=== PATIENT | female | born 1965 | race Caucasian/White ===

== ENCOUNTER → 2017-02-15 | Outpatient (CLI) | payer BC | LOC: RAD 09:19 | DX: Z12.31 Encounter for screening mammogram for malignant neoplasm of breast (principal); N63.20 Unspecified lump in the left breast, unspecified quadrant | CPT/HCPCS: G0202 ==

== ENCOUNTER → 2017-03-05 | Outpatient (CLI) | payer BC | LOC: RAD 15:53 | DX: N95.0 Postmenopausal bleeding (principal) ==

== ENCOUNTER → 2017-03-11 | Outpatient (CLI) | payer BC | LOC: RAD 07:14 | DX: N63.23 Unspecified lump in the left breast, lower outer quadrant (principal) ==

== ENCOUNTER → 2017-10-11 | Outpatient (CLI) | payer BC | LOC: RAD 08:33 | DX: M76.892 Other specified enthesopathies of left lower limb, excluding foot (principal) ==

== ENCOUNTER → 2017-10-14 | Outpatient (CLI) | payer BC | LOC: RAD 17:00 | DX: M17.12 Unilateral primary osteoarthritis, left knee (principal); M75.111 Incomplete rotator cuff tear or rupture of right shoulder, not specified as traumatic; M19.011 Primary osteoarthritis, right shoulder ==

== ENCOUNTER → 2018-01-01 | Outpatient (CLI) | payer BC ==
[2018-01-01 09:31] LABS: EOS # 0.1 (0.04-0.40); EOS % 1.4 % (1.0-5.0); HEMATOCRIT 38.6 % (37.0-47.0); HEMOGLOBIN 12.5 g/dL (12.5-16.0); LYMPH# 2.6 (1.50-4.00); MEAN CELL VOLUME 94 fl (78-100); MEAN CORPUSCULAR HEMOGLOBIN 30 pg (27-31); MEAN CORPUSCULAR HGB CONC 32 g/dL (33-37); MEAN PLATELET VOLUME 11.6 fl (7.4-10.4); MONO # 0.8 (0.20-0.80); PLATELET COUNT 242 K/mm3 (130-400); RED BLOOD COUNT 4.11 M/mm3 (4.10-5.30); WHITE BLOOD COUNT 8.6 K/mm3 (4.8-10.8)
[2018-01-01 09:59] LABS: CALCIUM 9.5 mg/dL (8.4-10.2); POTASSIUM 3.8 mmol/L (3.6-5.0); TOTAL BILIRUBIN 0.6 mg/dL (0.2-1.3); TOTAL PROTEIN 7.4 g/dL (6.3-8.2)
== END ==
LOC: LAB 09:00
PROVIDERS: Family Medicine
DX: Z00.00 Encounter for general adult medical examination without abnormal findings (principal); R53.83 Other fatigue

== ENCOUNTER → 2018-01-03 | Outpatient (CLI) | payer BC | LOC: CARDREHAB 07:43 → CARDLAB 12:00 | DX: R94.39 Abnormal result of other cardiovascular function study (principal); R07.9 Chest pain, unspecified; Z82.49 Family history of ischemic heart disease and other diseases of the circulatory system | CPT/HCPCS: A9500 ==

== ENCOUNTER → 2018-05-06 | Outpatient (CLI) | payer BC | LOC: MAMMO 09:57 | DX: Z12.31 Encounter for screening mammogram for malignant neoplasm of breast (principal) ==

== ENCOUNTER → 2018-07-07 | Outpatient (CLI) | payer BC | LOC: RAD 14:41 | DX: M47.816 Spondylosis without myelopathy or radiculopathy, lumbar region (principal); M16.12 Unilateral primary osteoarthritis, left hip ==

== ENCOUNTER → 2018-07-16 | Outpatient (CLI) | payer BC | LOC: RAD 06:46 | DX: M51.17 Intervertebral disc disorders with radiculopathy, lumbosacral region (principal); M40.56 Lordosis, unspecified, lumbar region ==

== ENCOUNTER 2018-09-18 08:30 | Outpatient (RCR) | payer BC, OTHER | END 2018-09-18 09:00 | disposition still patient (30) | LOC: PT 08:30 | DX: M51.36 Other intervertebral disc degeneration, lumbar region (principal) ==

== ENCOUNTER → 2019-02-03 | Outpatient (CLI) | payer BC ==
[2019-02-03 09:04] LABS: EOS # 0.1 (0.04-0.40); HEMATOCRIT 39.8 % (37.0-47.0); HEMOGLOBIN 12.5 g/dL (12.5-16.0); LYMPH# 2.9 (1.50-4.00); MEAN CELL VOLUME 95 fl (78-100); MEAN CORPUSCULAR HEMOGLOBIN 30 pg (27-31); MEAN CORPUSCULAR HGB CONC 31 g/dL (33-37); MEAN PLATELET VOLUME 11.4 fl (7.4-10.4); MONO # 0.6 (0.20-0.80); NEU # 3.2 (1.40-6.50); PLATELET COUNT 278 K/mm3 (130-400); RED BLOOD COUNT 4.21 M/mm3 (4.10-5.30); RED CELL DISTRIBUTION WIDTH 14.9 % (11.5-14.5); WHITE BLOOD COUNT 6.8 K/mm3 (4.8-10.8)
[2019-02-03 09:15] LABS: POTASSIUM 4.2 mmol/L (3.5-5.1)
[2019-02-03 09:16] LABS: ALBUMIN 3.8 g/dL (3.5-5.0)
[2019-02-03 09:17] LABS: CALCIUM 9.7 mg/dL (8.3-10.5)
[2019-02-03 09:20] LABS: TOTAL BILIRUBIN 0.5 mg/dL (0.2-1.2)
== END ==
LOC: LAB 08:48
PROVIDERS: Family Medicine
DX: Z00.00 Encounter for general adult medical examination without abnormal findings (principal); E78.5 Hyperlipidemia, unspecified; E55.9 Vitamin D deficiency, unspecified

== ENCOUNTER → 2019-02-04 | Outpatient (CLI) | payer BC | LOC: RAD 06:58 | DX: S83.241A Other tear of medial meniscus, current injury, right knee, initial encounter (principal); M17.11 Unilateral primary osteoarthritis, right knee; M25.461 Effusion, right knee ==

== ENCOUNTER → 2019-07-22 | Outpatient (CLI) | payer BC | LOC: RAD 11:16 | DX: M19.011 Primary osteoarthritis, right shoulder (principal); M50.323 Other cervical disc degeneration at C6-C7 level ==

== ENCOUNTER → 2019-08-11 | Outpatient (CLI) | payer BC | LOC: RAD 07:00 | DX: M47.812 Spondylosis without myelopathy or radiculopathy, cervical region (principal); M25.511 Pain in right shoulder; M25.512 Pain in left shoulder ==

== ENCOUNTER → 2020-05-30 | Outpatient (CLI) | payer BC ==
[2020-05-30 17:24] LABS: EOS # 0.2 (0.04-0.40); EOS % 1.6 % (1.0-5.0); HEMATOCRIT 41.5 % (37.0-47.0); LYMPH# 4.1 (1.50-4.00); MEAN CELL VOLUME 97 fl (78-100); MEAN CORPUSCULAR HEMOGLOBIN 30 pg (27-31); MEAN CORPUSCULAR HGB CONC 31 g/dL (33-37); MEAN PLATELET VOLUME 10.1 fl (7.4-10.4); PLATELET COUNT 389 K/mm3 (130-400); RED BLOOD COUNT 4.27 M/mm3 (4.10-5.30); WHITE BLOOD COUNT 10.3 K/mm3 (4.8-10.8)
[2020-05-30 17:50] LABS: POTASSIUM 4.1 mmol/L (3.5-5.1)
[2020-05-30 17:52] LABS: CALCIUM 9.4 mg/dL (8.3-10.5)
[2020-05-30 17:53] LABS: TOTAL PROTEIN 7.5 g/dL (6.4-8.3)
[2020-05-30 17:55] LABS: TOTAL BILIRUBIN 0.4 mg/dL (0.2-1.2)
[2020-05-30 18:54] LABS: PROTHROMBIN TIME 9.5 SECONDS (9.0-12.0)
== END ==
LOC: LAB 17:08
PROVIDERS: Family Medicine
DX: I10 Essential (primary) hypertension (principal); E55.9 Vitamin D deficiency, unspecified; R73.9 Hyperglycemia, unspecified; R58 Hemorrhage, not elsewhere classified

== ENCOUNTER → 2020-08-18 | Outpatient (CLI) | payer BC | LOC: RAD 15:51 | DX: S83.242A Other tear of medial meniscus, current injury, left knee, initial encounter (principal); S82.142A Displaced bicondylar fracture of left tibia, initial encounter for closed fracture; S86.812A Strain of other muscle(s) and tendon(s) at lower leg level, left leg, initial encounter ==

== ENCOUNTER → 2020-10-06 | Outpatient (CLI) | payer BC ==
[2020-10-06 09:10] LABS: BASO # 0.04 (0.02-0.10); EOS # 0.13 (0.04-0.40); EOS % 1.5 % (1.0-5.0); HEMATOCRIT 37.8 % (37.0-47.0); HEMOGLOBIN 11.8 g/dL (12.5-16.0); LYMPH# 3.32 (1.50-4.00); MEAN CELL VOLUME 101 fl (78-100); MEAN CORPUSCULAR HEMOGLOBIN 32 pg (27-31); MEAN CORPUSCULAR HGB CONC 31 g/dL (33-37); MEAN PLATELET VOLUME 10.8 fl (7.4-10.4); MONO # 0.69 (0.20-0.80); NEU # 4.43 (1.40-6.50); PLATELET COUNT 278 K/mm3 (130-400); RED BLOOD COUNT 3.74 M/mm3 (4.10-5.30); RED CELL DISTRIBUTION WIDTH 13.7 % (11.5-14.5); WHITE BLOOD COUNT 8.6 K/mm3 (4.8-10.8)
[2020-10-06 09:27] LABS: ALBUMIN 3.8 g/dL (3.5-5.0); POTASSIUM 4.3 mmol/L (3.5-5.1)
[2020-10-06 09:28] LABS: CALCIUM 9.5 mg/dL (8.3-10.5)
[2020-10-06 09:29] LABS: TOTAL PROTEIN 6.9 g/dL (6.4-8.3)
[2020-10-06 09:31] LABS: TOTAL BILIRUBIN 0.7 mg/dL (0.2-1.2)
== END ==
LOC: LAB 08:47
PROVIDERS: Family Medicine
DX: Z00.00 Encounter for general adult medical examination without abnormal findings (principal); Z13.29 Encounter for screening for other suspected endocrine disorder; Z13.220 Encounter for screening for lipoid disorders; R73.9 Hyperglycemia, unspecified

== ENCOUNTER → 2020-10-19 | Outpatient (CLI) | payer BC | LOC: MAMMO 08:26 | DX: Z12.31 Encounter for screening mammogram for malignant neoplasm of breast (principal) ==

== ENCOUNTER → 2020-11-25 | Outpatient (CLI) | payer BC ==
[2020-11-25 09:53] LABS: POTASSIUM 4.1 mmol/L (3.5-5.1)
[2020-11-25 09:55] LABS: CALCIUM 9.8 mg/dL (8.3-10.5)
== END ==
LOC: LAB 08:39
PROVIDERS: Internal Medicine Nephrology
DX: N17.9 Acute kidney failure, unspecified (principal)

== ENCOUNTER → 2020-12-30 | Outpatient (CLI) | payer BC | LOC: RAD 17:50 | DX: M25.562 Pain in left knee (principal) ==

== ENCOUNTER → 2021-04-25 | Outpatient (CLI) | payer BC ==
[2021-04-25 16:26] LABS: BASO # 0.04 K/mm3 (0.02-0.10); HEMATOCRIT 40.9 % (37.0-47.0); HEMOGLOBIN 12.8 g/dL (12.5-16.0); LYMPH# 4.31 K/mm3 (1.50-4.00); MEAN CELL VOLUME 99 fl (78-100); MEAN CORPUSCULAR HEMOGLOBIN 31 pg (27-31); MEAN CORPUSCULAR HGB CONC 31 g/dL (33-37); MEAN PLATELET VOLUME 10.3 fl (7.4-10.4); MONO # 0.81 K/mm3 (0.20-0.80); NEU # 4.43 K/mm3 (1.40-6.50); PLATELET COUNT 354 K/mm3 (130-400); RED BLOOD COUNT 4.14 M/mm3 (4.10-5.30); RED CELL DISTRIBUTION WIDTH 14.4 % (11.5-14.5); WHITE BLOOD COUNT 9.7 K/mm3 (4.8-10.8)
[2021-04-25 16:44] LABS: PROTHROMBIN TIME 9.6 SECONDS (9.0-12.0)
== END ==
LOC: LAB 16:04
PROVIDERS: Family Medicine
DX: I10 Essential (primary) hypertension (principal); G44.89 Other headache syndrome; R58 Hemorrhage, not elsewhere classified; G89.29 Other chronic pain; F32.9 Major depressive disorder, single episode, unspecified; K21.9 Gastro-esophageal reflux disease without esophagitis; R73.9 Hyperglycemia, unspecified; E03.9 Hypothyroidism, unspecified; E66.9 Obesity, unspecified; M19.90 Unspecified osteoarthritis, unspecified site; Z88.9 Allergy status to unspecified drugs, medicaments and biological substances

== ENCOUNTER → 2021-07-10 | Outpatient (CLI) | payer BC ==
[2021-07-10 15:41] LABS: BASO # 0.04 K/mm3 (0.02-0.10); EOS # 0.11 K/mm3 (0.04-0.40); EOS % 1.2 % (1.0-5.0); HEMATOCRIT 39.2 % (37.0-47.0); HEMOGLOBIN 12.3 g/dL (12.5-16.0); LYMPH# 3.82 K/mm3 (1.50-4.00); MEAN CELL VOLUME 98 fl (78-100); MEAN CORPUSCULAR HEMOGLOBIN 31 pg (27-31); MEAN CORPUSCULAR HGB CONC 31 g/dL (33-37); MEAN PLATELET VOLUME 10.1 fl (7.4-10.4); MONO # 0.64 K/mm3 (0.20-0.80); PLATELET COUNT 301 K/mm3 (130-400); RED BLOOD COUNT 3.99 M/mm3 (4.10-5.30); RED CELL DISTRIBUTION WIDTH 13.9 % (11.5-14.5); WHITE BLOOD COUNT 8.8 K/mm3 (4.8-10.8)
[2021-07-10 15:47] LABS: ALBUMIN 3.8 g/dL (3.5-5.0)
[2021-07-10 15:48] LABS: POTASSIUM 4.3 mmol/L (3.5-5.1)
[2021-07-10 15:49] LABS: CALCIUM 9.7 mg/dL (8.3-10.5)
[2021-07-10 15:50] LABS: TOTAL PROTEIN 7.1 g/dL (6.4-8.3)
[2021-07-10 15:52] LABS: PROTHROMBIN TIME 9.7 SECONDS (9.0-12.0); TOTAL BILIRUBIN 0.4 mg/dL (0.2-1.2)
[2021-07-10 16:27] LABS: URINE APPEARANCE CLEAR; URINE COLOR YELLOW; URINE GLUCOSE NEGATIVE (NEGATIVE); URINE PROTEIN(semi-quant) TRACE (NEGATIVE)
[2021-07-10 16:28] LABS: URINE BILIRUBIN 2+ (NEGATIVE); URINE BLOOD NEGATIVE (NEGATIVE); URINE KETONE NEGATIVE (NEGATIVE); URINE LEUKOCYTE ESTERASE NEGATIVE (NEGATIVE); URINE NITRATE NEGATIVE (NEGATIVE); URINE UROBILINOGEN 1 mg/dL (NORMAL); URINE WBC 0-1 /hpf (0-3)
== END ==
LOC: LAB 15:22
PROVIDERS: Family Medicine
DX: Z01.89 Encounter for other specified special examinations (principal); Z01.818 Encounter for other preprocedural examination; I10 Essential (primary) hypertension; G44.89 Other headache syndrome; G89.29 Other chronic pain; M51.36 Other intervertebral disc degeneration, lumbar region; F32.9 Major depressive disorder, single episode, unspecified; K21.9 Gastro-esophageal reflux disease without esophagitis; R73.9 Hyperglycemia, unspecified

== ENCOUNTER → 2021-11-17 | Outpatient (CLI) | payer BC ==
[2021-11-17 15:39] LABS: BASO # 0.04 K/mm3 (0.02-0.10); EOS # 0.16 K/mm3 (0.04-0.40); EOS % 1.9 % (1.0-5.0); HEMATOCRIT 35.6 % (37.0-47.0); HEMOGLOBIN 11.2 g/dL (12.5-16.0); LYMPH# 3.18 K/mm3 (1.50-4.00); MEAN CELL VOLUME 97 fl (78-100); MEAN CORPUSCULAR HEMOGLOBIN 30 pg (27-31); MEAN CORPUSCULAR HGB CONC 32 g/dL (33-37); MEAN PLATELET VOLUME 10.1 fl (7.4-10.4); MONO # 0.67 K/mm3 (0.20-0.80); NEU # 4.16 K/mm3 (1.40-6.50); PLATELET COUNT 344 K/mm3 (130-400); RED BLOOD COUNT 3.68 M/mm3 (4.10-5.30); RED CELL DISTRIBUTION WIDTH 14.1 % (11.5-14.5); WHITE BLOOD COUNT 8.2 K/mm3 (4.8-10.8)
[2021-11-17 15:50] LABS: ALBUMIN 3.8 g/dL (3.5-5.0)
[2021-11-17 15:51] LABS: POTASSIUM 4.2 mmol/L (3.5-5.1)
[2021-11-17 15:53] LABS: TOTAL PROTEIN 7.1 g/dL (6.4-8.3)
[2021-11-17 15:55] LABS: TOTAL BILIRUBIN 0.3 mg/dL (0.2-1.2)
[2021-11-17 16:00] LABS: PROTHROMBIN TIME 9.7 SECONDS (9.0-12.0)
[2021-11-17 16:16] LABS: URINE APPEARANCE CLOUDY; URINE BILIRUBIN NEGATIVE (NEGATIVE); URINE BLOOD TRACE (NEGATIVE); URINE COLOR YELLOW; URINE GLUCOSE NEGATIVE (NEGATIVE); URINE KETONE TRACE (NEGATIVE); URINE LEUKOCYTE ESTERASE 2+ (NEGATIVE); URINE NITRATE NEGATIVE (NEGATIVE); URINE PROTEIN(semi-quant) 1+ (NEGATIVE); URINE UROBILINOGEN NORMAL (NORMAL); URINE WBC 31-50 /hpf (0-3)
== END ==
LOC: AMSURD 11-15 16:02
PROVIDERS: Family Medicine
DX: Z01.812 Encounter for preprocedural laboratory examination (principal); Z01.89 Encounter for other specified special examinations

== ENCOUNTER → 2022-01-16 | Outpatient (CLI) | payer BC ==
[2022-01-16 16:34] LABS: ALBUMIN 3.8 g/dL (3.5-5.0); POTASSIUM 4.1 mmol/L (3.5-5.1)
[2022-01-16 16:35] LABS: CALCIUM 9.8 mg/dL (8.3-10.5)
== END ==
LOC: LAB 15:58
PROVIDERS: Internal Medicine Nephrology
DX: N17.8 Other acute kidney failure (principal)

== ENCOUNTER → 2024-02-14 | Outpatient (REF) | payer BC | LOC: LAB 15:41 | DX: J06.9 Acute upper respiratory infection, unspecified (principal) ==

== ENCOUNTER → 2024-03-17 | Outpatient (CLI) | payer OTHER ==
[2024-03-17 09:56] LABS: CALCIUM 9.7 mg/dL (8.3-10.5)
== END ==
LOC: MAMMO 09:29
PROVIDERS: Family Medicine
DX: Z13.820 Encounter for screening for osteoporosis (principal); Z12.31 Encounter for screening mammogram for malignant neoplasm of breast; M85.851 Other specified disorders of bone density and structure, right thigh; N18.31 Chronic kidney disease, stage 3a

== ENCOUNTER → 2024-04-13 | Outpatient (CLI) | payer OTHER | LOC: RAD 16:26 | DX: M19.012 Primary osteoarthritis, left shoulder (principal); M16.12 Unilateral primary osteoarthritis, left hip ==